=== PATIENT | male | born 1940 | race Caucasian/White ===

== ENCOUNTER → 2021-06-26 09:39 | Outpatient (BNVA) | payer MEDICARE, SELFPAY | PROVIDERS: PCP Internal Medicine; Visit Provider Surgery Vascular Surgery | DX: I83.12 Varicose veins of left lower extremity with inflammation (principal) | CPT/HCPCS: 99212 ==

== ENCOUNTER 2021-07-17 07:49 | Outpatient (REF) | payer MEDICARE, SELFPAY ==
--- NOTE | ~2021-07-17 | US_ITS ---
EXAMINATION: US LOWER EXTREMITY VENOUS ULTRASOUND (REFLUX EXAM), BILATERAL CLINICAL INDICATION: Leg pain and lower extremity varicose veins. COMPARISON: 01/03/2020 TECHNIQUE: Color-flow triplex imaging and compression Doppler was performed to evaluate both the deep and the superficial systems bilaterally. To evaluate the superficial system, the examination was performed in the upright position. Color-flow Doppler ultrasound and compression ultrasound were utilized. In addition, maneuvers were utilized to demonstrate reflux. FINDINGS: 1. DEEP VENOUS ULTRASOUND OF THE RIGHT LOWER EXTREMITY: Common Femoral Vein: Compressible, normal respiratory variation and augmented flow. Femoral Vein: Compressible, normal color-flow and augmentation. Popliteal Vein: Compressible, normal augmentation. Deep Reflux: There is 1.3 seconds of reflux within the right common femoral vein and 1.6 seconds of reflux within the right femoral vein. There is no evidence of a Morales's cyst. 2. SUPERFICIAL ULTRASOUND WITH DOPPLER OF RIGHT LOWER EXTREMITY: GREAT SAPHENOUS VEIN: Saphenofemoral junction: 0.5 cm; Reflux: No evidence of reflux. Proximal thigh: 0.5 cm; Reflux: No evidence of reflux. Mid thigh: 0.3 cm; Reflux: 2.0 seconds. Above knee: 0.3 cm; Reflux: 2.4 seconds. At knee: 0.3 cm; Reflux: 3.2 seconds. Below knee: 0.3 cm; Reflux: 3.3 seconds. Mid calf: 0.3 cm; Reflux: No evidence of reflux. Ankle: 0.3 cm; Reflux: No evidence of reflux. DUPLICATED GREAT SAPHENOUS VEIN: None. SMALL SAPHENOUS VEIN: Saphenopopliteal junction: 0.2 cm; No evidence of reflux. Mid calf: 0.2 cm; 2.7 seconds of reflux. Distal calf: 0.3 cm; No evidence of reflux. VEIN OF GIACOMINI: None imaged. PERFORATORS: [place]cal[place], 0.3 cm, no reflux. VARICOSITIES: [place], 0.3 cm, no reflux. 3. DEEP VENOUS ULTRASOUND OF THE LEFT LOWER EXTREMITY: Common Femoral Vein: Compressible, normal respiratory variation and augmented flow. Femoral Vein: Compressible, normal color-flow and augmentation. Popliteal Vein: Compressible, normal augmentation. Deep Reflux: There is no evidence of reflux in the deep system in either the common femoral vein or the popliteal vein. There is no evidence of a Morales's cyst. 4. SUPERFICIAL ULTRASOUND WITH DOPPLER OF LEFT LOWER EXTREMITY: GREAT SAPHENOUS VEIN: The left great saphenous vein measures up to 0.6 cm at the saphenofemoral junction and 0.3 cm at the ankle. There is reflux throughout the left great saphenous vein beginning at the saphenofemoral junction. Reflux at the saphenofemoral junction measures up to 2.7 seconds. The left great saphenous vein is partially duplicated in the lower thigh, as before. The lateral duplicated great saphenous vein measures up to 8 mm at the distal thigh and demonstrates up to 0.7 seconds of reflux. DUPLICATED GREAT SAPHENOUS VEIN: None. SMALL SAPHENOUS VEIN: Saphenopopliteal junction: 0.2 cm; No evidence of reflux. Mid calf: 0.3 cm; No evidence of reflux. Distal calf: 0.2 cm; No evidence of reflux. VEIN OF GIACOMINI: None imaged. PERFORATORS: Proximal calf, arising from the duplicated lateral great saphenous vein, 0.3 cm, no reflux. VARICOSITIES: None imaged. US/US venous duplex LE BI IMPRESSION: 1. Right great saphenous venous insufficiency beginning in the mid thigh and extending below the knee. 2. Left great saphenous venous insufficiency beginning at the saphenofemoral junction. The left great saphenous vein is partially duplicated in the lower thigh, and there is evidence of reflux within the lateral duplicated GSV. 3. Right small saphenous venous insufficiency at the mid calf. 4. Deep venous insufficiency involving the right common femoral and femoral veins. 5. No evidence of DVT.
== END 2021-07-17 07:50 | disposition home or self-care (01) ==
LOC: HO.US 07:49
PROVIDERS: PCP Internal Medicine; Visit Provider Surgery Vascular Surgery
DX: I83.12 Varicose veins of left lower extremity with inflammation (principal); I83.11 Varicose veins of right lower extremity with inflammation
CPT/HCPCS: 93970

== ENCOUNTER → 2021-07-22 08:58 | Outpatient (BNVA) | payer MEDICARE, SELFPAY | PROVIDERS: PCP Internal Medicine; Visit Provider Surgery Vascular Surgery | DX: I83.12 Varicose veins of left lower extremity with inflammation (principal) | CPT/HCPCS: 99212 ==

== ENCOUNTER → 2021-08-08 07:41 | Outpatient (BNVA) | payer MEDICARE, SELFPAY | PROVIDERS: PCP Internal Medicine; Visit Provider Surgery Vascular Surgery | DX: I83.12 Varicose veins of left lower extremity with inflammation (principal); I48.91 Unspecified atrial fibrillation; I10 Essential (primary) hypertension; E78.00 Pure hypercholesterolemia, unspecified; G62.9 Polyneuropathy, unspecified; F17.210 Nicotine dependence, cigarettes, uncomplicated | CPT/HCPCS: 36475 ==

== ENCOUNTER 2021-08-11 08:23 | Outpatient (REF) | payer MEDICARE, SELFPAY ==
--- NOTE | ~2021-08-11 | US_ITS ---
EXAMINATION: US VENOUS ULTRASOUND WITH DOPPLER LOWER EXTREMITY, left. Status post vein ablation. CLINICAL INFORMATION: Status post left RFA, rule out DVT. Date of procedure: August 08, 2021. COMPARISON: July 17, 2021 and January 03, 2020 TECHNIQUE: Ultrasound of the deep veins is performed from the hip to the calf with compression sonography and color and pulse Doppler assessment. Spectral analysis with color-flow imaging is performed. Imaging of the greater saphenous vein performed. FINDINGS: There is normal venous compression and respiratory variation and augmented flow. The visualized common femoral vein, superficial femoral vein, profunda femoral vein, popliteal vein, and the trifurcation region shows no evidence of deep venous thrombosis. There is no significant popliteal fossa cyst. No popliteal artery aneurysm. The greater saphenous vein is occluded/closed. There appears to be occlusion of the left superficial femoral artery with reconstitution distally. US/US venous duplex LE RT IMPRESSION: No acute DVT demonstrated in the left lower extremity. Apparent superficial femoral artery occlusion.
== END 2021-08-11 08:24 | disposition home or self-care (01) ==
LOC: HO.US 08:23
PROVIDERS: PCP Internal Medicine; Visit Provider Surgery Vascular Surgery
DX: M79.604 Pain in right leg (principal)
CPT/HCPCS: 93971

== ENCOUNTER → 2021-08-21 08:54 | Outpatient (BNVA) | payer MEDICARE, SELFPAY | PROVIDERS: PCP Internal Medicine; Visit Provider Surgery Vascular Surgery | DX: I83.12 Varicose veins of left lower extremity with inflammation (principal); I48.91 Unspecified atrial fibrillation; I10 Essential (primary) hypertension; E78.00 Pure hypercholesterolemia, unspecified; G62.9 Polyneuropathy, unspecified; M81.0 Age-related osteoporosis without current pathological fracture; F17.210 Nicotine dependence, cigarettes, uncomplicated | CPT/HCPCS: 99212 ==

== ENCOUNTER → 2021-10-02 11:12 | Outpatient (BNVA) | payer MEDICARE, SELFPAY | PROVIDERS: PCP Internal Medicine; Visit Provider Surgery Vascular Surgery | DX: I89.0 Lymphedema, not elsewhere classified (principal) | CPT/HCPCS: 99212 ==

== ENCOUNTER 2021-10-13 10:00 | Outpatient (RCR) | payer MEDICARE, SELFPAY | END 2022-01-06 15:50 | disposition home or self-care (01) | LOC: HO.WCC 10:00 | PROVIDERS: PCP Internal Medicine; Visit Provider Physician Assistant | DX: I87.333 Chronic venous hypertension (idiopathic) with ulcer and inflammation of bilateral lower extremity (principal); L97.522 Non-pressure chronic ulcer of other part of left foot with fat layer exposed; L97.222 Non-pressure chronic ulcer of left calf with fat layer exposed; L97.812 Non-pressure chronic ulcer of other part of right lower leg with fat layer exposed; I70.245 Atherosclerosis of native arteries of left leg with ulceration of other part of foot; I70.242 Atherosclerosis of native arteries of left leg with ulceration of calf; I89.0 Lymphedema, not elsewhere classified; F17.200 Nicotine dependence, unspecified, uncomplicated; I10 Essential (primary) hypertension; G62.9 Polyneuropathy, unspecified | CPT/HCPCS: 11042; 11045; 99215 ==

== ENCOUNTER → 2021-11-06 13:29 | Outpatient (BNVA) | payer MEDICARE, SELFPAY | PROVIDERS: PCP Internal Medicine; Visit Provider Surgery Vascular Surgery | DX: I73.9 Peripheral vascular disease, unspecified (principal) | CPT/HCPCS: 99212 ==

== ENCOUNTER 2021-11-12 07:57 | Outpatient (REF) | payer MEDICARE, SELFPAY ==
--- NOTE | ~2021-11-12 | US_ITS ---
EXAMINATION: COLOR-FLOW DUPLEX IMAGING OF THE BILATERAL LOWER EXTREMITY ARTERIAL SYSTEM. VELOCITY MEASUREMENTS THROUGHOUT THE FEMORAL ARTERIES WITH ANKLE-BRACHIAL PERIPHERAL ARTERIAL TESTING. Interventional Radiologist: Moses Arrington M.D., F.S.I.R., F.A.C.R. CLINICAL INFORMATION: This a 81-year-old male with history of hypertension, hyperlipidemia, peripheral arterial disease. RIGHT FEMORAL RUNOFF VELOCITIES: The right common femoral artery measures 95 cm/s and triphasic. The right profunda femoral artery is 99 cm/s and is triphasic. Right proximal superficial femoral artery measures 77 cm/s and biphasic. Mid superficial femoral artery is 92 cm/s and biphasic. Distal right superficial femoral artery measures 73 cm/s and is biphasic. Right popliteal velocity measures 52 cm/s and is biphasic. The posterior tibial artery velocity measures 35 cm/s and was biphasic. The right ankle brachial index is 1.22. LEFT FEMORAL RUNOFF VELOCITIES: The left common femoral artery measures 80 cm/s and biphasic. The left profunda femoral artery is 83 cm/s and is biphasic. Left proximal superficial femoral artery measures 18 cm/s and monophasic. Mid superficial femoral artery is occluded. Distal left superficial femoral artery measures 56 cm/s and is monophasic. Left popliteal velocity measures 24 cm/s and is monophasic. The posterior tibial artery velocity measures 26 cm/s and was biphasic. The left ankle-brachial index could not be obtained. The waveform appeared flat at the ankle. US/US RHONDA complete IMPRESSION: 1. RIGHT SIDE: normal arterial testing without evidence of hemodynamically significant stenosis. 2. LEFT SIDE: There is a mid left superficial femoral artery occlusion. There are decreased velocities and waveforms below this area.
--- NOTE | ~2021-11-12 | US_ITS ---
EXAMINATION: COLOR-FLOW DUPLEX IMAGING OF THE BILATERAL LOWER EXTREMITY ARTERIAL SYSTEM. VELOCITY MEASUREMENTS THROUGHOUT THE FEMORAL ARTERIES WITH ANKLE-BRACHIAL PERIPHERAL ARTERIAL TESTING. Interventional Radiologist: Moses Arrington M.D., F.S.I.R., F.A.C.R. CLINICAL INFORMATION: This a 81-year-old male with history of hypertension, hyperlipidemia, peripheral arterial disease. RIGHT FEMORAL RUNOFF VELOCITIES: The right common femoral artery measures 95 cm/s and triphasic. The right profunda femoral artery is 99 cm/s and is triphasic. Right proximal superficial femoral artery measures 77 cm/s and biphasic. Mid superficial femoral artery is 92 cm/s and biphasic. Distal right superficial femoral artery measures 73 cm/s and is biphasic. Right popliteal velocity measures 52 cm/s and is biphasic. The posterior tibial artery velocity measures 35 cm/s and was biphasic. The right ankle brachial index is 1.22. LEFT FEMORAL RUNOFF VELOCITIES: The left common femoral artery measures 80 cm/s and biphasic. The left profunda femoral artery is 83 cm/s and is biphasic. Left proximal superficial femoral artery measures 18 cm/s and monophasic. Mid superficial femoral artery is occluded. Distal left superficial femoral artery measures 56 cm/s and is monophasic. Left popliteal velocity measures 24 cm/s and is monophasic. The posterior tibial artery velocity measures 26 cm/s and was biphasic. The left ankle-brachial index could not be obtained. The waveform appeared flat at the ankle. US/US arterial duplex LE BI IMPRESSION: 1. RIGHT SIDE: normal arterial testing without evidence of hemodynamically significant stenosis. 2. LEFT SIDE: There is a mid left superficial femoral artery occlusion. There are decreased velocities and waveforms below this area.
== END 2021-11-12 07:58 | disposition home or self-care (01) ==
LOC: HO.US 07:57
PROVIDERS: Visit Provider Physician Assistant
DX: I73.9 Peripheral vascular disease, unspecified (principal)
CPT/HCPCS: 93923; 93925

== ENCOUNTER → 2021-11-25 09:17 | Outpatient (BNVA) | payer MEDICARE, SELFPAY | PROVIDERS: PCP Internal Medicine; Visit Provider Surgery Vascular Surgery | DX: I73.9 Peripheral vascular disease, unspecified (principal) | CPT/HCPCS: Q3014 ==

== ENCOUNTER 2021-12-03 06:03 | Day surgery (SDC) | payer MEDICARE, SELFPAY ==
[2021-12-03] VITALS (9 sets, daily range): BP systolic 138–164; BP diastolic 75–92; PULSE 61–85; RESP 16–17; TEMP 36.3–36.6; O2SAT 92–100; BMI 20.8
[2021-12-03 06:52] LABS: MANUAL DIFF FLAG NO
[2021-12-03 06:56] LABS: Basophils Absolute Auto 0.1 X10*3/uL (0.0-0.2); Basophils Percent Auto 0.7 % (0-2); Eosinophils Absolute Auto 0.2 X10*3/uL (0.0-0.4); Eosinophils Percent Auto 1.9 % (0-4); Hematocrit 42.6 % (42.0-52.0); Hemoglobin 13.5 g/dl (14.0-18.0); Imm Gran Abs Auto 0.04 X10*3/uL (0.00-0.03); Imm Gran Pct Auto 0.4 % (0.0-0.4); Lymphocytes Absolute Auto 1.1 X10*3/uL (1.2-4.9); Lymphocytes Percent Auto 12.6 % (20-40); Mean Corpuscular HGB Conc 31.7 g/dl (31.0-36.0); Mean Corpuscular Hemoglobin 30.3 pg (27.0-33.0); Mean Corpuscular Volume 95.5 fL (80.0-98.0); Mean Platelet Volume 10.3 fL (9.4-12.4); Monocytes Absolute Auto 0.9 X10*3/uL (0.1-1.2); Monocytes Percent Auto 10.5 % (2-11); Neutrophils Absolute Auto 6.6 x10*3/uL (2.0-8.3); Neutrophils Percent Auto 73.9 % (45-73); Platelet Count 178 X10*3/uL (160-400); Red Blood Count 4.46 X10*6/uL (4.60-5.80); Red Cell Distribution Width 14.6 % (11.0-16.0); White Blood Count 8.9 X10*3/uL (4.8-10.8)
[2021-12-03 07:03] LABS: INTERNATIONAL NORM RATIO 1.3 (0.9-1.1)
[2021-12-03 07:05] LABS: Partial Thromboplastin Time 34.1 SEC (24.1-38.0)
[2021-12-03 07:11] LABS: Blood Urea Nitrogen 21 mg/dL (9-16); Creatinine Clr Calc Pharmacy 56.2; Estimated Glomerular Filt Rate > 60
[2021-12-03] MEDS: 0.9 % Sodium Chloride 1,000 ML 100 ML IVCONT (07:22)
--- NOTE | 2021-12-03 07:50 | PC.NURSE ---
Patient left to radiology with one silver ring on left finger. Ring taped. Yohannes (faith doctor) aware.
--- NOTE | 2021-12-03 09:52 | W.PM.OPN ---
Operative Note Operative Note Date of Service: 12/03/21 Narrative: Angiogram report from [facility] Preoperative diagnosis: Atherosclerosis of Left lower extremity with nonhealing ulcer Postoperative diagnosis: Same Procedure: 1. Ultrasound-guided right common femoral access 2. Aortogram with left lower extremity runoff Surgeon:Fredrick Sebastian M.D., FACS, RPVI Adjunct Professor Of [place] History:None Anesthesia: Local with moderate conscious sedation. Total intraservice moderate sedation time was 45 minutes. I monitored the patient's level of consciousness and physiologic status continuously throughout the procedure. Specimens:none Drains:none Estimated blood loss: Less than 10 ml Implant: none Indications: 81-year-old gentleman with nonhealing left lower extremity ulcer. He has had noninvasive testing which was concerning for SFA disease. He now presents for endovascular intervention The patient has signed the informed consent after reviewing risks, complications, benefits, and alternatives previously discussed with the patient. The patient was given the opportunity to ask any additional questions or voice any concerns. All questions were answered to the patient's satisfaction. Procedure in detail: Patient was brought to the angiography suite prior to which a time-out was called for patient identification and site verification. Bilateral groins were prepped and draped in the standard surgical fashion. Under ultrasound guidance right common femoral was punctured with micro puncture needle and wire. Subsequently a precision 5 Armenian sheath was then placed. Bentson wire was advanced to the level of the aorta. 5 Armenian Flush catheter was brought up and parked at the level of the renal arteries. Aortogram was then undertaken. Catheter was brought down to the level of the iliac bifurcation. Iliacs were subsequently imaged. Catheter was then brought in up and over to the left side profundus femoral . Runoff study was then undertaken. no intervention was indicated. Catheter wire sheath was then removed. Direct pressure was held for 10 minutes. Interpretation of films: 1. Ultrasound demonstrates appropriate femoral puncture. Image of which was saved. 2. Aortogram demonstrates appropriate caliber aorta concerning for aneurysmal disease. Minimal disease. Appropriate take-off of the renals. 3. Iliac images demonstrate Extremely calcified. Harden bifurcation. 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 left Leg Common femoral artery: moderate disease Profundus Femoris: No significant disease Superficial femoral artery: complete total occlusion reconstitution at above knee popliteal Popliteal artery (p1,p2,p3): patent but mild calcification Anterior tibial artery: patent Peroneal artery: patent Posterior tibial artery: occluded Dorsalis pedis/plantar arch: incomplete Conclusion: 1. successful diagnostic angiogram. Due to the level of calcification and total occlusion was unable to intervene. 2. Anticoagulation status: No change. may resume Coumadin tomorrow This note is constructed using voice recognition software. While every effort has been made to ensure accuracy, television director errors may have been included. Thank you for allowing me to participate in the care of your patient. Yours sincerely, Fredrick Sebastian MD, FACS, R.P.V.I.
== END 2021-12-03 13:25 | disposition home or self-care (01) ==
PROVIDERS: PCP Internal Medicine; Visit Provider Surgery Vascular Surgery
DX: I70.248 Atherosclerosis of native arteries of left leg with ulceration of other part of lower leg (principal); I48.91 Unspecified atrial fibrillation; Z87.891 Personal history of nicotine dependence
CPT/HCPCS: 36247; 36415; 75630; 76937; 82565; 84520; 85025; 85610; 85730; 99152; 99153; C1769; C1887; J2250; J3010; Q9967